=== PATIENT | female | born 1970 | race Caucasian/White ===

== ENCOUNTER 2016-05-30 23:47 | Emergency (ER) | payer OTHER ==
[2016-05-31 00:37] VITALS: BP 132/74; PULSE 78; RESP 20; TEMP 98.7
[2016-05-31] MEDS ORDERED: TOPICAL SKIN ADHESIVE 1 EACH AMP TOPICAL ONE (02:54)
[2016-05-31] MEDS ORDERED: DIPH,PERTUS(ACELL)TETVAC-LF 0.5 ML VIAL IM ONE (03:19)
--- NOTE | 2016-05-31 03:21 | ED ---
Wound/Laceration HPI - General Chief Complaint: Wound/Laceration Stated Complaint: finger lac Time Seen by Provider: 05/31/16 02:53 Source: patient, RN notes reviewed, old records reviewed Mode of arrival: ambulatory Limitations: no limitations - History of Present Illness Initial Comments: Patient is a 45 year old female with chief complaint of left 2nd digit laceration after pushing down the trash and hand was cut on a tin can edge. Patient does not know status of tetanus vacination. She request stiches and not dermabond. She reports she has full range of motion of her finger, and denies numbness or tingling in her finger. - Related Data Home Medications Medication Instructions Recorded Confirmed Amitriptyline HCl [Elavil] 30 mg PO HS 08/15/14 05/31/16 Atorvastatin [Lipitor] 20 mg PO DAILY 08/15/14 05/31/16 Losartan/Hydrochlorothiazide 1 each PO QAM 08/15/14 05/31/16 [Losartan-Hctz 100-25 mg Tab] Rizatriptan Benzoate [Maxalt] 10 mg PO DIRECTED PRN 08/15/14 05/31/16 clonazePAM [KlonoPIN] 0.25 mg PO BID PRN 08/15/14 05/31/16 L.acidoph,Paracasei, B.lactis 1 each PO DAILY 01/08/15 05/31/16 [Probiotic] Melatonin 10 mg PO HS 01/08/15 05/31/16 Naproxen Sodium [Aleve] 220 mg PO Q12HR PRN 01/08/15 05/31/16 Sertraline [Zoloft] 50 mg PO QAM 01/08/15 05/31/16 Allergies Allergy/AdvReac Type Severity Reaction Status Date / Time No Known Allergies Allergy Verified 05/31/16 00:38 Review of Systems ROS Statement: Those systems with pertinent positive or pertinent negative responses have been documented in the HPI. ROS Other: All systems not noted in ROS Statement are negative. Past Medical History Past Medical History: Hyperlipidemia, Hypertension, Osteoarthritis (OA) Additional Past Medical History / Comment(s): CURRENTLY HAVING PAIN RT FOREARM, MIGRAINES,CONSTIPATION,CHRONIC BACK PAIN,LT HEEL PUMP BUMP History of Any Multi-Drug Resistant Organisms: None Reported Past Surgical History: Section, Cholecystectomy, Hysterectomy, Orthopedic Surgery, Tubal Ligation Additional Past Surgical History / Comment(s): carpaltunnel R wrist,ORIF RT FOREARM,JENARO ACL REPAIR Past Anesthesia/Blood Transfusion Reactions: No Reported Reaction Past Psychological History: Anxiety, Depression, Panic Disorder Smoking Status: Current every day smoker Past Alcohol Use History: None Reported Additional Past Alcohol Use History / Comment(s): STARTED SMOKING 1990 ON AND OFF Past Drug Use History: None Reported - Past Family History Mother History Unknown: Yes Family Medical History: No Reported History Father Family Medical History: Cancer Additional Family Medical History / Comment(s): SKIN General Exam - General Exam Comments Initial Comments: Well appearing 45 year old female, no distress. Limitations: no limitations General appearance: alert, in no apparent distress Head exam: Present: atraumatic, normocephalic, normal inspection Eye exam: Present: normal appearance, PERRL, EOMI. Absent: scleral icterus, conjunctival injection, periorbital swelling ENT exam: Present: normal exam, mucous membranes moist Neck exam: Present: normal inspection. Absent: tenderness, meningismus, lymphadenopathy Cardiovascular Exam: Present: regular rate, normal rhythm, normal heart sounds. Absent: systolic murmur, diastolic murmur, rubs, gallop, clicks GI/Abdominal exam: Present: soft, normal bowel sounds. Absent: distended, tenderness, guarding, rebound, rigid Extremities exam: Present: normal inspection, full ROM, normal capillary refill. Absent: tenderness, pedal edema, joint swelling, calf tenderness Left Hand Wrist exam: Present: normal inspection, full ROM Hand L/R Back: 1 - .5 cm laceration. Neuro motor exam: Present: wrist extension intact, thumb opposition intact, thumb IP flexion intact, thumb adduction intact, fingers 2-5 abduction intact Neurosensory exam: Present: 2-point discrimination, radial nerve intact, ulnar nerve intact, median nerve intact Back exam: Present: normal inspection Neurological exam: Present: alert, oriented X3, CN II-XII intact Psychiatric exam: Present: normal affect, normal mood Skin exam: Present: warm, dry, intact, normal color. Absent: rash Course Vital Signs 05/31/16 00:36 Temperature 98.7 F Pulse Rate 78 Respiratory 20 Rate Blood Pressure 132/74 O2 Sat by Pulse 97 Oximetry Procedures - Laceration Laceration #1 Site: hand (proximal 2nd digit laceration ) Size (cm): 1 Description: linear Depth: simple, single layer Sedation/Analgesia: none Pre-repair: wound explored Type of Sutures: nylon Size of Sutures: 6-0 Number of Sutures: 1 Technique: simple, interrupted Patient Tolerated Procedure: well, no complications Medical Decision Making - Medical Decision Making Patient is a 45 year old female with .5 cm laceration to left proximal digit. Patient given one suture and wound was cleaned. She has full range of motion. Patient advised to monitor for signs of infection. Return parameters discussed. Disposition Clinical Impression: Finger laceration Disposition: HOME SELF-CARE Condition: Good Instructions: Care For Your Stitches (ED) Additional Instructions: Please return to the emergency room in 5 days to have sutures removed. Please leave wound covered for the first 24-48 hours and then leave open to air after that time. Please use clean soap and water to clean the suture area to prevent scabbing over the top of your sutures. Please watch for any signs of infection which may include but not limited to increased pain, swelling, redness, fever or chills. Please return to the emergency room if any signs of infection do occur. Please return to the emergency room for any other concerns or complications. Referrals: Tim Galloway DO [Primary Care Provider] - 1-2 days Time of Disposition: 03:21
== END 2016-05-31 04:01 | disposition home or self-care (01) ==
LOC: EC 23:47
DX: S61.211A Laceration without foreign body of left index finger without damage to nail, initial encounter (principal); E78.5 Hyperlipidemia, unspecified; I10 Essential (primary) hypertension; F32.9 Major depressive disorder, single episode, unspecified; F41.0 Panic disorder [episodic paroxysmal anxiety]; F41.9 Anxiety disorder, unspecified; F17.200 Nicotine dependence, unspecified, uncomplicated; Z79.899 Other long term (current) drug therapy; W26.8XXA Contact with other sharp object(s), not elsewhere classified, initial encounter; Z23 Encounter for immunization
CPT/HCPCS: 12001; 90471; 90715; 99282

== ENCOUNTER → 2017-08-12 | Outpatient (CLI) | payer BC ==
--- NOTE | 2017-08-16 10:29 | MM ---
Reason for exam: clinical finding. History: Took hormonal contraceptives beginning at age 16. Physical Findings: Nurse did not find any significant physical abnormalities on exam. MG 3D Diag Mammo W/Cad JENARO Bilateral CC and MLO view(s) were taken. There are scattered fibroglandular densities. No suspicious abnormality. These results were verbally communicated with the patient and result sheet given to the patient on 08/12/17. ASSESSMENT: Negative, BI-RAD 1 RECOMMENDATION: Routine screening mammogram of both breasts in 1 year. Manage on a clinical basis with regard to nonfocal left breast pain radiating to the patient's back.
== END | disposition home or self-care (01) ==
LOC: RADMAMWWP 15:36
PROVIDERS: ATTEND Family Medicine
DX: N64.4 Mastodynia (principal)
CPT/HCPCS: 77062; 77066

== ENCOUNTER → 2018-07-12 | Outpatient (CLI) | payer BC ==
--- NOTE | 2018-07-12 17:27 | NM ---
EXAMINATION TYPE: NM bone/joint limited DATE OF EXAM: 07/12/2018 COMPARISON: NONE HISTORY: Pain in thoracic spine TECHNIQUE: After the intravenous administration of 25.9 mCi Tc 99m MDP. Images acquired 3 hours pos t injection. Multiple views of the thoracic region are submitted. FINDINGS: There is no abnormal uptake within the visualized osseous structures to suggest acute process. No hima topenic defects are evident. Mild degenerative change at the costovertebral regions is not excluded. IMPRESSION: 1. No suspicious acute changes. 2. Mild costovertebral degenerative changes may be present.
== END | disposition home or self-care (01) ==
LOC: RADNMMAIN 09:51
PROVIDERS: ATTEND Physical Medicine & Rehabilitation
DX: M54.6 Pain in thoracic spine (principal)
CPT/HCPCS: 78300; A9503

== ENCOUNTER 2019-05-31 07:28 | Day surgery (SDC) | payer BC ==
[2019-05-29 14:29] VITALS: BMI 44.7
[~2019-05-31 07:28] MED LIST: DEXAMETHASONE SOD PHOSPHATE 10 MG/ML 1 ML VIAL IV ONE; HEPARIN SODIUM,PORCINE 5,000 UNIT/ML 1 ML VIAL SQ ONE; HYDROmorphone 0.5 MG/0.5 ML SYRINGE IVP PRN; LACTATED RINGERS 1,000 ML IV SCH; LIDOCAINE 1% (10MG/ML) FOR IV START INTRADERMA PRN; ONDANSETRON 4 MG/2 ML VIAL IVP ONE; Pre Op ABX Message 1 EACH MISC MISCELLANE ONE
[2019-05-31 08:00] VITALS: RESP 16
[2019-05-31] MEDS ORDERED: MIDAZOLAM 2 MG/2 ML VIAL IV ONE (08:23)
--- NOTE | 2019-05-31 09:02 | P.GSHP ---
History of Present Illness H&P Date: 05/31/19 Chief Complaint: Internal next of hemorrhoids This a 48-year-old female who presents today for hemorrhoidectomy. Patient's had trouble with chronic constipation. She developed severe internal hemorrhoids. She does today for hemorrhoidectomy. Patient points of rectal bleeding pain and itching. Past Medical History Past Medical History: Hyperlipidemia, Hypertension, Osteoarthritis (OA) Additional Past Medical History / Comment(s): Hx. of MIGRAINES,CONSTIPATION,CHRONIC BACK PAIN. Currently having rectal swelling. History of Any Multi-Drug Resistant Organisms: None Reported Past Surgical History: Section, Cholecystectomy, Hysterectomy, Orthopedic Surgery, Tubal Ligation Additional Past Surgical History / Comment(s): carpal tunnel Bilat, ORIF RT FOREARM,JENARO ACL REPAIR, Bilat heel surgery. Past Anesthesia/Blood Transfusion Reactions: No Reported Reaction Smoking Status: Former smoker - Past Family History Mother History Unknown: Yes Family Medical History: No Reported History Father Family Medical History: Cancer Additional Family Medical History / Comment(s): SKIN Medications and Allergies Home Medications Medication Instructions Recorded Confirmed Type Atorvastatin [Lipitor] 20 mg PO DAILY 08/15/14 05/29/19 History Losartan/Hydrochlorothiazide 1 each PO QAM 08/15/14 05/29/19 History [Losartan-Hctz 100-25 mg Tab] Naproxen Sodium [Aleve] 220 mg PO Q12HR PRN 01/08/15 05/29/19 History Ascorbic Acid [Vitamin C] 500 mg PO DAILY 05/29/19 05/29/19 History FLUoxetine HCL [PROzac] 10 mg PO DAILY 05/29/19 05/29/19 History Psyllium Husk 100% [Metamucil 6 gm PO DAILY 05/29/19 05/29/19 History Packet] Allergies Allergy/AdvReac Type Severity Reaction Status Date / Time No Known Allergies Allergy Verified 05/31/19 08:00 Surgical - Exam Vital Signs Temp Pulse Resp BP Pulse Ox 97.8 F 104 H 16 123/80 97 05/31/19 07:58 05/31/19 07:58 05/31/19 07:58 05/31/19 07:58 05/31/19 07:58 - General well developed, well nourished, no distress - Eyes PERRL - ENT normal pinna - Neck no masses - Respiratory normal expansion - Cardiovascular Rhythm: regular - Abdomen Abdomen: soft, non tender - Rectum Hemorrhoids: moderate, large Assessment and Plan Assessment: Internal and external hemorrhoids. We'll perform hemorrhoidectomy.
[2019-05-31] MEDS ORDERED: LIDOCAINE 1% INJ 10MG/ML (20 ML MDV) ONE (09:18)
[2019-05-31] MEDS ORDERED: KETAMINE 10 MG/ML 20 ML VIAL ONE (09:18)
[2019-05-31] MEDS ORDERED: ceFAZolin 1,000 MG VIAL ONE (09:18)
[2019-05-31] MEDS ORDERED: MIDAZOLAM 2 MG/2 ML VIAL ONE (09:18)
[2019-05-31] MEDS ORDERED: PROPOFOL 10 MG/ML 20 ML VIAL IV ONE (09:18)
[2019-05-31] MEDS ORDERED: fentaNYL (PF) 50 MCG/ML 2 ML AMP ONE (09:18)
[2019-05-31] MEDS ORDERED: BUPIVACAINE (PF) 0.25% 30 ML VIAL SQ ONE ×2 (09:53→09:56)
[2019-05-31] MEDS ORDERED: SODIUM CHLORIDE 0.9% 50 ML with ceFAZolin 2,000 MG IV ONE ×2 (09:54)
[2019-05-31] MEDS ORDERED: LIDOCAINE 1%-EPI 1:100,000 20 ML VIAL SQ ONE (09:56)
[2019-05-31] MEDS ORDERED: GELATIN SPONGE,ABSORB (LARGE) 1 EACH SPONGE TOPICAL ONE (10:06)
[2019-05-31 10:22] VITALS: TEMP 98.6
--- NOTE | 2019-05-31 10:38 | P.OP ---
Date of Procedure: 05/31/19 Preoperative Diagnosis: Internal and external hemorrhoids Postoperative Diagnosis: Internal and external hemorrhoids Procedure(s) Performed: Internal and external hemorrhoidectomy Anesthesia: CHICO Surgeon: Bear Tellez Pathology: none sent Condition: stable Disposition: PACU Description of Procedure: The patient's placed on the operative table in the prone position he should she received IV sedation. Her anus was prepped and sterile fashion. The anus was blocked with local lidocaine 1%. The patient had a large hemorrhoidal columns. The left lateral and right anterior and right posterior columns were enlarged. Using a anal retractor the left lateral hemorrhoidal column was exposed and then this was grasped with a Allis clamp. Using Harmonic scissors the hemorrhoidectomy was performed. Next the right anterior and right posterior hemorrhoidal column were excised in identical fashion. The anus and that her bleeding. There is no bleeding seen. The anus was then packed with Gelfoam. Patient top she will was sent to recovery room in stable condition.
[2019-05-31 11:28] VITALS: BP 124/75; PULSE 82
== END 2019-05-31 11:47 | disposition home or self-care (01) ==
LOC: OR 07:28
PROVIDERS: ATTEND Surgery
DX: K64.4 Residual hemorrhoidal skin tags (principal); K64.8 Other hemorrhoids; K59.09 Other constipation; E78.5 Hyperlipidemia, unspecified; I10 Essential (primary) hypertension; M19.90 Unspecified osteoarthritis, unspecified site; G43.909 Migraine, unspecified, not intractable, without status migrainosus; F41.9 Anxiety disorder, unspecified; F32.9 Major depressive disorder, single episode, unspecified; R52 Pain, unspecified; E66.01 Morbid (severe) obesity due to excess calories; Z68.45 Body mass index [BMI] 70 or greater, adult; Z98.890 Other specified postprocedural states; Z90.49 Acquired absence of other specified parts of digestive tract; Z90.710 Acquired absence of both cervix and uterus; Z98.51 Tubal ligation status; Z86.69 Personal history of other diseases of the nervous system and sense organs; Z87.81 Personal history of (healed) traumatic fracture; Z87.891 Personal history of nicotine dependence; Z85.828 Personal history of other malignant neoplasm of skin; Z79.899 Other long term (current) drug therapy; Z79.1 Long term (current) use of non-steroidal anti-inflammatories (NSAID)
CPT/HCPCS: 88304; 46260; J2250; J1644; J1100; J2405; J0690; J2001; J3010; J2704

== ENCOUNTER 2021-05-02 12:53 | Emergency (ER) | payer BC, OTHER ==
[2021-05-02 13:03] VITALS: TEMP 98.2
[2021-05-02] MEDS ORDERED: SODIUM CHLORIDE 0.9% 500 ML 500 ML IV STA (13:24)
--- NOTE | 2021-05-02 13:27 | ED ---
General Adult HPI - General Source: patient, family, RN notes reviewed, old records reviewed Mode of arrival: wheelchair Limitations: no limitations <Tim Byrd - Last Filed: 05/02/21 14:50> <Pricilla Vance - Last Filed: 05/02/21 22:48> - General Chief complaint: Shortness of Breath Stated complaint: SOB, +Bilat PEs Time Seen by Provider: 05/02/21 13:00 - History of Present Illness Initial comments: This is a 50-year-old female with past medical history significant for high blood pressure. Patient states she had COVID one month ago. Patient states over the last 2 weeks she's had shortness of breath and coughing. Patient states she's been seen by her family doctor and they have given her 2 different antibiotics and multiple doses of steroids and she continues to get worse. Patient states she saw her physician today and the physician told her that she probably has pneumonia and go to the hospital to get further evaluated. Patient denies any fever today but she has the chills. Patient states she has occasional chest pain in the front. Patient states she also is sore from coughing so much. Patient denies any nausea vomiting or diarrhea. Patient denies any swollen to the legs or calf tenderness (Tim Byrd) - Related Data Home Medications Medication Instructions Recorded Confirmed Atorvastatin [Lipitor] 20 mg PO DAILY 08/15/14 05/02/21 Losartan/Hydrochlorothiazide 1 tab PO DAILY 08/15/14 05/02/21 [Losartan-Hctz 100-25 mg Tab] Albuterol Sulfate [Ventolin HFA] 1 - 2 puff INHALATION RT-Q6H PRN 05/02/21 05/02/21 FLUoxetine HCL 40 mg PO DAILY 05/02/21 05/02/21 FLUoxetine HCL [PROzac] 20 mg PO DAILY 05/02/21 05/02/21 Ibuprofen [Motrin] 800 mg PO Q8H PRN 05/02/21 05/02/21 Previous Rx's Medication Instructions Recorded Ketorolac [Toradol] 10 mg PO Q6HR #20 tab 05/02/21 Allergies Allergy/AdvReac Type Severity Reaction Status Date / Time No Known Allergies Allergy Verified 05/02/21 15:54 Review of Systems ROS Other: All systems not noted in ROS Statement are negative. <Tim Byrd - Last Filed: 05/02/21 14:50> ROS Other: All systems not noted in ROS Statement are negative. <Pricilla Vance - Last Filed: 05/02/21 22:48> ROS Statement: Those systems with pertinent positive or pertinent negative responses have been documented in the HPI. Past Medical History Past Medical History: Hyperlipidemia, Hypertension, Osteoarthritis (OA) Additional Past Medical History / Comment(s): Hx. of MIGRAINES,CONSTIPATION,CHRONIC BACK PAIN. Currently having rectal swelling. History of Any Multi-Drug Resistant Organisms: None Reported Past Surgical History: Section, Cholecystectomy, Hysterectomy, Orthopedic Surgery, Tubal Ligation Additional Past Surgical History / Comment(s): carpal tunnel Bilat, ORIF RT FOREARM,JENARO ACL REPAIR, Bilat heel surgery. Past Anesthesia/Blood Transfusion Reactions: No Reported Reaction Past Psychological History: Anxiety, Depression, Panic Disorder Smoking Status: Never smoker Past Alcohol Use History: Occasional Past Drug Use History: None Reported - Past Family History Mother History Unknown: Yes Family Medical History: No Reported History Father Family Medical History: Cancer Additional Family Medical History / Comment(s): SKIN <Tim Byrd - Last Filed: 05/02/21 14:50> General Exam Limitations: no limitations <Tim Byrd - Last Filed: 05/02/21 14:50> - General Exam Comments Initial Comments: GENERAL: Patient is well-developed and well-nourished. Patient is nontoxic and well- hydrated and is in mild distress. ENT: Neck is soft and supple. No significant lymphadenopathy is noted. Oropharynx is clear. Moist mucous membranes. Neck has full range of motion without eliciting any pain. EYES: The sclera were anicteric and conjunctiva were pink and moist. Extraocular movements were intact and pupils were equal round and reactive to light. Eyelids were unremarkable. PULMONARY: Unlabored respirations. Good breath sounds bilaterally. No audible rales rhonchi or wheezing was noted. CARDIOVASCULAR: Patient is tachycardic at about 115 beats a minute ABDOMEN: Soft and nontender with normal bowel sounds. SKIN: Skin is clear with no lesions or rashes and otherwise unremarkable. NEUROLOGIC: Patient is alert and oriented x3. Cranial nerves II through XII are grossly intact. Motor and sensory are also intact. Normal speech, volume and content. Symmetrical smile. MUSCULOSKELETAL: Normal extremities with adequate strength and full range of motion. No lower extremity swelling or edema. No calf tenderness. LYMPHATICS: No significant lymphadenopathy is noted PSYCHIATRIC: Normal psychiatric evaluation. (Tim Byrd) Course Vital Signs 05/02/21 05/02/21 05/02/21 13:00 15:28 15:37 Temperature 98.2 F Pulse Rate 117 H 92 92 Respiratory 18 Rate Blood Pressure 120/58 O2 Sat by Pulse 96 Oximetry 05/02/21 16:03 Temperature Pulse Rate 87 Respiratory 16 Rate Blood Pressure 154/78 O2 Sat by Pulse 99 Oximetry Medical Decision Making - Lab Data Result diagrams: 05/02/21 13:34 05/02/21 13:34 <Tim Byrd - Last Filed: 05/02/21 14:50> - Lab Data Result diagrams: 05/02/21 13:34 05/02/21 13:34 <Pricilla Vance - Last Filed: 05/02/21 22:48> - Medical Decision Making EKG shows sinus tachycardia at 107 bpm VA interval is 160 QRS is 93 QT interval 345 QTC is 408. Patient's EKG shows no ST segment elevation or depression. Dr. Vance be taking over the care of this patient at 3 PM (Tim Byrd) I took over care of this patient at 3 PM. Patient was pending CT results. I reviewed the patient's laboratory studies. She was given 2 L of normal saline. CT was reviewed which answers no signs of PE. Mild interstitial infiltrate and subsegmental atelectasis. Possible pulmonary fibrosis. Results are discussed the patient. Patient will be discharged home. Recommended pulmonary function testing, pulmonary follow-up and echo. Patient given Toradol for pain control as she did have improvement in her symptoms when this was administered in the emergency department. Patient agreeable to this. Would return for any new or worsening symptoms. Patient discharged home ambulatory in stable condition (Pricilla Vance) - Lab Data Lab Results 05/02/21 05/02/21 05/02/21 Range/Units 13:34 13:34 13:34 WBC 10.4 (3.8-10.6) k/uL RBC 4.01 (3.80-5.40) m/uL Hgb 12.8 (11.4-16.0) gm/dL Hct 39.7 (34.0-46.0) % MCV 98.9 (80.0-100.0) fL MCH 31.9 (25.0-35.0) pg MCHC 32.3 (31.0-37.0) g/dL RDW 14.7 (11.5-15.5) % Plt Count 255 (150-450) k/uL MPV 7.8 Neutrophils % 78 % Lymphocytes % 15 % Monocytes % 4 % Eosinophils % 2 % Basophils % 1 % Neutrophils # 8.1 H (1.3-7.7) k/uL Lymphocytes # 1.5 (1.0-4.8) k/uL Monocytes # 0.4 (0-1.0) k/uL Eosinophils # 0.2 (0-0.7) k/uL Basophils # 0.1 (0-0.2) k/uL Macrocytosis Slight PT 10.0 (9.0-12.0) sec INR 0.9 (<1.2) APTT 22.5 (22.0-30.0) sec D-Dimer 0.68 H (<0.60) mg/L FEU Sodium 137 (137-145) mmol/L Potassium 3.6 (3.5-5.1) mmol/L Chloride 104 (98-107) mmol/L Carbon Dioxide 27 (22-30) mmol/L Anion Gap 6 mmol/L BUN 11 (7-17) mg/dL Creatinine 0.61 (0.52-1.04) mg/dL Est GFR (CKD-EPI)AfAm >90 (>60 ml/min/1.73 sqM) Est GFR (CKD-EPI)NonAf >90 (>60 ml/min/1.73 sqM) Glucose 149 H (74-99) mg/dL Lactic Ac Sepsis Rflx Plasma Lactic Acid Hunter (0.7-2.0) mmol/L Calcium 9.6 (8.4-10.2) mg/dL Magnesium 1.8 (1.6-2.3) mg/dL Total Bilirubin 1.2 (0.2-1.3) mg/dL AST 29 (14-36) U/L ALT 35 H (4-34) U/L Alkaline Phosphatase 155 H (38-126) U/L Troponin I (0.000-0.034) ng/mL NT-Pro-B Natriuret Pep pg/mL Total Protein 6.8 (6.3-8.2) g/dL Albumin 3.9 (3.5-5.0) g/dL 05/02/21 05/02/21 05/02/21 Range/Units 13:34 13:34 13:34 WBC (3.8-10.6) k/uL RBC (3.80-5.40) m/uL Hgb (11.4-16.0) gm/dL Hct (34.0-46.0) % MCV (80.0-100.0) fL MCH (25.0-35.0) pg MCHC (31.0-37.0) g/dL RDW (11.5-15.5) % Plt Count (150-450) k/uL MPV Neutrophils % % Lymphocytes % % Monocytes % % Eosinophils % % Basophils % % Neutrophils # (1.3-7.7) k/uL Lymphocytes # (1.0-4.8) k/uL Monocytes # (0-1.0) k/uL Eosinophils # (0-0.7) k/uL Basophils # (0-0.2) k/uL Macrocytosis PT (9.0-12.0) sec INR (<1.2) APTT (22.0-30.0) sec D-Dimer (<0.60) mg/L FEU Sodium (137-145) mmol/L Potassium (3.5-5.1) mmol/L Chloride (98-107) mmol/L Carbon Dioxide (22-30) mmol/L Anion Gap mmol/L BUN (7-17) mg/dL Creatinine (0.52-1.04) mg/dL Est GFR (CKD-EPI)AfAm (>60 ml/min/1.73 sqM) Est GFR (CKD-EPI)NonAf (>60 ml/min/1.73 sqM) Glucose (74-99) mg/dL Lactic Ac Sepsis Rflx Plasma Lactic Acid Hunter 2.9 H* (0.7-2.0) mmol/L Calcium (8.4-10.2) mg/dL Magnesium (1.6-2.3) mg/dL Total Bilirubin (0.2-1.3) mg/dL AST (14-36) U/L ALT (4-34) U/L Alkaline Phosphatase (38-126) U/L Troponin I <0.012 (0.000-0.034) ng/mL NT-Pro-B Natriuret Pep 38 pg/mL Total Protein (6.3-8.2) g/dL Albumin (3.5-5.0) g/dL 05/02/21 Range/Units 14:12 WBC (3.8-10.6) k/uL RBC (3.80-5.40) m/uL Hgb (11.4-16.0) gm/dL Hct (34.0-46.0) % MCV (80.0-100.0) fL MCH (25.0-35.0) pg MCHC (31.0-37.0) g/dL RDW (11.5-15.5) % Plt Count (150-450) k/uL MPV Neutrophils % % Lymphocytes % % Monocytes % % Eosinophils % % Basophils % % Neutrophils # (1.3-7.7) k/uL Lymphocytes # (1.0-4.8) k/uL Monocytes # (0-1.0) k/uL Eosinophils # (0-0.7) k/uL Basophils # (0-0.2) k/uL Macrocytosis PT (9.0-12.0) sec INR (<1.2) APTT (22.0-30.0) sec D-Dimer (<0.60) mg/L FEU Sodium (137-145) mmol/L Potassium (3.5-5.1) mmol/L Chloride (98-107) mmol/L Carbon Dioxide (22-30) mmol/L Anion Gap mmol/L BUN (7-17) mg/dL Creatinine (0.52-1.04) mg/dL Est GFR (CKD-EPI)AfAm (>60 ml/min/1.73 sqM) Est GFR (CKD-EPI)NonAf (>60 ml/min/1.73 sqM) Glucose (74-99) mg/dL Lactic Ac Sepsis Rflx Y Plasma Lactic Acid Hunter (0.7-2.0) mmol/L Calcium (8.4-10.2) mg/dL Magnesium (1.6-2.3) mg/dL Total Bilirubin (0.2-1.3) mg/dL AST (14-36) U/L ALT (4-34) U/L Alkaline Phosphatase (38-126) U/L Troponin I (0.000-0.034) ng/mL NT-Pro-B Natriuret Pep pg/mL Total Protein (6.3-8.2) g/dL Albumin (3.5-5.0) g/dL Disposition <Tim Byrd - Last Filed: 05/02/21 14:50> Is patient prescribed a controlled substance at d/c from ED?: No Time of Disposition: 15:55 <Pricilla Vance - Last Filed: 05/02/21 22:48> Clinical Impression: Shortness of breath, COVID-19, Chest pain Disposition: HOME SELF-CARE Condition: Stable Instructions (If sedation given, give patient instructions): Coronavirus Disease 2019 (COVID-19), Shortness of Breath (ED) Additional Instructions: Please follow up with your primary care doctor in 2-4 days. Return to emergency room for any new or worsening symptoms I recommend pulmonary function testing and an echo Prescriptions: Ketorolac [Toradol] 10 mg PO Q6HR #20 tab Referrals: Pricilla Suarez PAC [Primary Care Provider] - 1-2 days
[2021-05-02 13:49] LABS: Basophils # (A) 0.1 k/uL (0-0.2); Basophils % (A) 1 %; Eosinophils # (A) 0.2 k/uL (0-0.7); Eosinophils % (A) 2 %; HCT 39.7 % (34.0-46.0); HGB 12.8 gm/dL (11.4-16.0); Lymphocytes # (A) 1.5 k/uL (1.0-4.8); Lymphocytes % (A) 15 %; MCH 31.9 pg (25.0-35.0); MCHC 32.3 g/dL (31.0-37.0); MCV 98.9 fL (80.0-100.0); Macrocytosis Slight; Mean Platelet Volume 7.8; Monocytes # (A) 0.4 k/uL (0-1.0); Monocytes % (A) 4 %; Neutrophils # (A) 8.1 k/uL (1.3-7.7); Neutrophils % (A) 78 %; Platelet Count 255 k/uL (150-450); RBC 4.01 m/uL (3.80-5.40); RDW 14.7 % (11.5-15.5); WBC 10.4 k/uL (3.8-10.6)
[2021-05-02 14:00] LABS: ALT 35 U/L (4-34); AST 29 U/L (14-36); African American GFR (CKD) >90 (>60 ml/min/1.73 sqM); Albumin 3.9 g/dL (3.5-5.0); Alkaline Phosphatase 155 U/L (38-126); Anion Gap 6 mmol/L; Blood Urea Nitrogen 11 mg/dL (7-17); Calcium 9.6 mg/dL (8.4-10.2); Carbon Dioxide 27 mmol/L (22-30); Chloride 104 mmol/L (98-107); Glucose 149 mg/dL (74-99); Magnesium 1.8 mg/dL (1.6-2.3); Non-African American GFR(CKD) >90 (>60 ml/min/1.73 sqM); Potassium 3.6 mmol/L (3.5-5.1); Sodium 137 mmol/L (137-145); Total Bilirubin 1.2 mg/dL (0.2-1.3); Total Protein 6.8 g/dL (6.3-8.2)
--- NOTE | 2021-05-02 14:01 | XR ---
EXAMINATION TYPE: XR chest 2V DATE OF EXAM: 05/02/2021 1:48 PM COMPARISON:None TECHNIQUE: XR chest 2V Frontal and lateral views of the chest. CLINICAL INDICATION:Female, 50 years old with history of Difficulty breathing ; FINDINGS: Lungs/Pleura: Low lung volumes are present. There is no evidence of pleural effusion, focal consolida tion, or pneumothorax. Pulmonary vascularity: Unremarkable. Heart/mediastinum: Cardiomediastinal silhouette is unremarkable. Musculoskeletal: No acute osseous pathology. IMPRESSION: No acute cardiopulmonary disease/process.
[2021-05-02 14:16] LABS: INR 0.9 (<1.2); Partial Thromboplastin Time 22.5 sec (22.0-30.0)
[2021-05-02] MEDS ORDERED: SODIUM CHLORIDE 0.9% 500 ML 500 ML IV ONE (14:51)
[2021-05-02] MEDS ORDERED: HYDROmorphone 0.5 MG/0.5 ML SYRINGE IVP STA (14:56)
[2021-05-02] MEDS ORDERED: KETOROLAC 30 MG/ML 1 ML VIAL IVP STA (14:56)
[2021-05-02] MEDS ORDERED: IPRATROPIUM-ALBUTEROL 3 ML NEB INHALATION STA (14:59)
--- NOTE | 2021-05-02 15:24 | CT ---
EXAMINATION TYPE: CT chest angio for PE DATE OF EXAM: 05/02/2021 COMPARISON: None HISTORY: SOB, cough CT DLP: 818 mGycm Automated exposure control for dose reduction was used. CONTRAST: Performed with IV Contrast, patient injected with 100 mL of Isovue 370. There are Three-D postprocessed images. There is some mild reticular interstitial infiltrates in the periphery of both lungs. There is subseg mental atelectasis. There is no pleural effusion. Heart size is fairly normal. There is no pericardia l effusion. There is no mediastinal adenopathy. Thoracic aorta is intact. There is no aneurysm or dis section. There is normal contrast opacification of the pulmonary arteries. There are no filling defects. Upper abdominal soft tissues are intact. There is degenerative spurring in the thoracic spine. No significant compression deformity. The dale um is intact. IMPRESSION: No evidence of pulmonary embolism. Mild interstitial infiltrates and subsegmental atelectasis. There is probably some pulmonary fibrosis .
[2021-05-02] MEDS ORDERED: SODIUM CHLORIDE 0.9% 1,000 ML IV ONE (15:51)
[2021-05-02 16:27] VITALS: BP 154/78; PULSE 87; RESP 16
== END 2021-05-02 16:30 | disposition home or self-care (01) ==
LOC: EC 12:53
DX: U07.1 COVID-19 (principal); I10 Essential (primary) hypertension
CPT/HCPCS: 36415; 94640; 93005; 85379; 83880; 80053; 83605; 83735; 84484; 85025; 85610; 85730; 87040; 71046; 71275; 99285; 96374; 96375; 96361; J1885; J1170; Q9967

== ENCOUNTER 2022-10-08 19:11 | Emergency (ER) | payer MEDICARE, OTHER ==
[2022-10-08 19:26] VITALS: RESP 18; TEMP 98
[2022-10-08] MEDS ORDERED: SODIUM CHLORIDE 0.9% 1,000 ML IV STA (19:35)
[2022-10-08 20:01] LABS: ALT 37 U/L (4-34); AST 26 U/L (14-36); African American GFR (CKD) >90 (>60 ml/min/1.73 sqM); Alkaline Phosphatase 130 U/L (38-126); Anion Gap 8 mmol/L; Blood Urea Nitrogen 14 mg/dL (7-17); Calcium 9.2 mg/dL (8.4-10.2); Carbon Dioxide 27 mmol/L (22-30); Chloride 108 mmol/L (98-107); Glucose 134 mg/dL (74-99); Lipase 111 U/L (23-300); Non-African American GFR(CKD) >90 (>60 ml/min/1.73 sqM); Potassium 4.2 mmol/L (3.5-5.1); Sodium 143 mmol/L (137-145); Total Bilirubin 0.6 mg/dL (0.2-1.3)
[2022-10-08 20:04] LABS: HCT 41.7 % (34.0-46.0); HGB 12.2 gm/dL (11.4-16.0); MCH 27.7 pg (25.0-35.0); MCHC 29.3 g/dL (31.0-37.0); MCV 94.5 fL (80.0-100.0); Mean Platelet Volume 8.3; Platelet Count 245 k/uL (150-450); RBC 4.42 m/uL (3.80-5.40); RDW 14.1 % (11.5-15.5); WBC 7.2 k/uL (3.8-10.6)
[2022-10-08] MEDS ORDERED: ONDANSETRON 4 MG/2 ML VIAL IVP STA (20:17)
[2022-10-08] MEDS ORDERED: HYDROmorphone 0.5 MG/0.5 ML SYRINGE IVP STA (20:17)
[2022-10-08 20:49] LABS: Appearance,Urine Turbid (Clear); Bilirubin,Urine Negative (Negative); Blood,Urine Negative (Negative); Color,Urine Yellow; Glucose,Urine (UA) Negative (Negative); Ketones,Urine Negative (Negative); Leukocyte Esterase,Urine Trace (Negative); Mucus,Urine Occasional /hpf; Nitrite,Urine Negative (Negative); PH, Urine 7.5 (5.0-8.0); Protein,Urine 1+ (Negative); Specific Gravity,Urine 1.021 (1.001-1.035); Squamous Epithelial Cell,Urine 13 /hpf (0-4); WBC,Urine 7 /hpf (0-5)
[2022-10-08 20:53] LABS: Band Neutrophils % 1 %; Lymphocytes # (M) 2.45 k/uL (1.0-4.8); Monocytes # (M) 0.22 k/uL (0-1.0); Neutrophils % (M) 62 %; Nucleated Red Blood Cells 0 /100 WBC (0-0); Total Cells Counted 100
--- NOTE | 2022-10-08 21:05 | CT ---
EXAMINATION TYPE: CT abdomen pelvis w con CT DLP: 2250.8 mGycm, Automated exposure control for dose reduction was used. DATE OF EXAM: 10/08/2022 8:45 PM COMPARISON: None CLINICAL INDICATION:Female, 52 years old with history of pain; Abdominal pain and distension. TECHNIQUE: Axial CT of the abdomen and pelvis. Sagittal and coronal reformats were created on a [employer] workstation. Contrast used:100 ml mL of Isovue 300 with IV Contrast, (none if empty) Oral contrast used: without Oral Contrast (none if empty) FINDINGS: LOWER CHEST: Atherosclerosis of the coronary arteries. There is multiple right-sided subcutaneous to remote rib fractures. ABDOMEN LIVER: Unremarkable GALLBLADDER AND BILE DUCTS: The gallbladder surgically absent. PANCREAS: Unremarkable. SPLEEN: Unremarkable. ADRENAL GLANDS: Unremarkable. KIDNEYS AND URETERS: No evidence of hydronephrosis or renal calculus. The ureters are unremarkable. PELVIS BLADDER: Unremarkable REPRODUCTIVE: Unremarkable. ABDOMEN & PELVIS STOMACH AND BOWEL: No evidence of bowel obstruction. Scattered colonic diverticula. Findings as visualized and normal. PERITONEUM/RETROPERITONEUM: No evidence of pneumoperitoneum or free fluid. VASCULATURE: Mild atherosclerotic calcifications are present throughout the abdominal aorta and its b ranches. No evidence of aortic aneurysm. MUSCULOSKELETAL: No acute osseous abnormalities. Moderate disc degeneration changes are present throu ghout the thoracolumbar spine. Degeneration changes of the hips bilaterally with large osteophyte for mation and joint space narrowing. LYMPH NODES: No gross evidence for lymphadenopathy. SOFT TISSUE/ABDOMINAL WALL: Fat-containing umbilical hernia. IMPRESSION: 1. No definitive evidence for acute intra-abdominal process to explain the patient's pain 2. Scattered colonic diverticula.
[2022-10-08] MEDS ORDERED: NA PHOS,M-B/NA PHOS,DI-BA 133 ML ENEMA RECTAL STA (22:01)
[2022-10-08 22:51] VITALS: BP 100/62; PULSE 77
--- NOTE | 2022-10-08 22:52 | ED ---
Abdominal Pain HPI - General Chief Complaint: Abdominal Pain Stated Complaint: Chest Pain,Abd bloated Time Seen by Provider: 10/08/22 19:35 Source: patient Mode of arrival: ambulatory Limitations: no limitations - History of Present Illness Initial Comments: Patient is a 52-year-old female presents to emergency department for abdominal pain. She has intermittent generalized abdominal pain which radiates to her chest. No ripping or tearing nature. Patient is very bloated which she is most concerned with. She has not had a bowel movement in 5 days. States she is not passing gas. She denies history of bowel obstruction. She has history of zehra cystectomy, . Reports nausea no vomiting. No fever or chills. No blood in stool. No urinary symptoms. No shortness of breath. - Related Data Home Medications Medication Instructions Recorded Confirmed FLUoxetine HCL 40 mg PO DAILY 05/02/21 10/08/22 FLUoxetine HCL [PROzac] 20 mg PO DAILY 05/02/21 10/08/22 Aspirin EC [Ecotrin Low Dose] 81 mg PO DAILY 10/08/22 10/08/22 Atorvastatin [Lipitor] 40 mg PO DAILY 10/08/22 10/08/22 Ciprofloxacin HCl [Cipro] 500 mg PO BID 10/08/22 10/08/22 Cyanocobalamin (Vitamin B-12) 1,000 mcg PO DAILY 10/08/22 10/08/22 [Vitamin B-12] Dicyclomine [Bentyl] 20 mg PO DIRECTED 10/08/22 10/08/22 Furosemide [Lasix] 40 mg PO DAILY 10/08/22 10/08/22 Insulin Aspart [NovoLOG Flexpen] 10 units SQ AC-TID 10/08/22 10/08/22 Insulin Glargine,Hum.rec.anlog 24 units SQ HS 10/08/22 10/08/22 [Lantus Solostar Pen] Isosorbide Mononitrate ER [Imdur] 60 mg PO DAILY 10/08/22 10/08/22 Losartan [Cozaar] 25 mg PO DAILY 10/08/22 10/08/22 Magnesium Oxide [Magnesium] 500 mg PO DAILY 10/08/22 10/08/22 Metoprolol Succinate (ER) [Toprol 100 mg PO DAILY 10/08/22 10/08/22 Xl] Omeprazole 40 mg PO DAILY 10/08/22 10/08/22 Potassium Chloride ER [K-Dur 10] 10 meq PO DAILY 10/08/22 10/08/22 Prasugrel [Effient] 10 mg PO DAILY 10/08/22 10/08/22 Ranolazine [Ranexa] 500 mg PO BID 10/08/22 10/08/22 Semaglutide [Ozempic] 1 mg SQ SA 10/08/22 10/08/22 clonazePAM [KlonoPIN] 0.5 mg PO DAILY PRN 10/08/22 10/08/22 metFORMIN HCL ER [Glucophage XR] 1,000 mg PO BID 10/08/22 10/08/22 rOPINIRole HCL [rOPINIRole HCL ER 2 mg PO HS 10/08/22 10/08/22 (XL)] traZODone HCL [Desyrel] 75 mg PO HS 10/08/22 10/08/22 Previous Rx's Medication Instructions Recorded polyethylene glycoL 3350 [Miralax] 17 gm PO DAILY #3 packet 10/08/22 Allergies Allergy/AdvReac Type Severity Reaction Status Date / Time No Known Allergies Allergy Verified 10/08/22 21:02 Review of Systems ROS Statement: Those systems with pertinent positive or pertinent negative responses have been documented in the HPI. ROS Other: All systems not noted in ROS Statement are negative. Past Medical History Past Medical History: Fibromyalgia, Hyperlipidemia, Hypertension, Myocardial Infarction (DE), Osteoarthritis (OA) Additional Past Medical History / Comment(s): Hx. of MIGRAINES,CONSTIPATION,CHRONIC BACK PAIN. History of Any Multi-Drug Resistant Organisms: None Reported Past Surgical History: Section, Cholecystectomy, Heart Catheterization With Stent, Hysterectomy, Orthopedic Surgery, Tubal Ligation Additional Past Surgical History / Comment(s): carpal tunnel Bilat, ORIF RT FOREARM,JENARO ACL REPAIR, Bilat heel surgery. Past Anesthesia/Blood Transfusion Reactions: No Reported Reaction Past Psychological History: Anxiety, Depression, Panic Disorder Smoking Status: Never smoker Past Alcohol Use History: Occasional Past Drug Use History: None Reported - Past Family History Mother History Unknown: Yes Family Medical History: No Reported History Father Family Medical History: Cancer Additional Family Medical History / Comment(s): SKIN General Exam Limitations: no limitations General appearance: alert Eye exam: Present: normal appearance, PERRL, EOMI Respiratory exam: Present: normal lung sounds bilaterally. Absent: respiratory distress, wheezes, rales, rhonchi, stridor Cardiovascular Exam: Present: regular rate, normal rhythm, normal heart sounds. Absent: systolic murmur, diastolic murmur, rubs, gallop, clicks GI/Abdominal exam: Present: soft, tenderness (Generalized), normal bowel sounds. Absent: distended, guarding, rebound, rigid Extremities exam: Present: normal inspection, full ROM, normal capillary refill. Absent: pedal edema Neurological exam: Present: alert Psychiatric exam: Present: normal affect, normal mood Skin exam: Present: warm, dry, intact, normal color. Absent: rash Course Vital Signs 10/08/22 10/08/22 10/08/22 19:22 19:34 22:50 Temperature 98 F Pulse Rate 84 80 77 Respiratory 18 18 18 Rate Blood Pressure 118/78 138/65 100/62 O2 Sat by Pulse 98 97 96 Oximetry Medical Decision Making - Medical Decision Making EKG taken 19:36, interpreted by myself Sinus rhythm, no ST segment or T-wave abnormalities Ventricular rate 77, OR interval 177, QRS duration 90, QTc 420 Was pt. sent in by a medical professional or institution ([facility], MILLING MACHINIST, urgent care, hospital, or halfway...) When possible be specific @ -No Did you speak to anyone other than the patient for history (EMS, parent, family, police, friend...)? What history was obtained from this source @ -No Did you review nursing and triage notes (agree or disagree)? Why? @ -I reviewed and agree with nursing and triage notes Were old charts reviewed (outside hosp., previous admission, EMS record, old EKG, old radiological studies, urgent care reports/EKG's, halfway records)? Report findings @ -No old charts were reviewed Differential Diagnosis (chest pain, altered mental status, abdominal pain women, abdominal pain men, vaginal bleeding, weakness, fever, dyspnea, syncope, headache, dizziness, GI bleed, back pain, seizure, CVA, palpatations, mental health)? @ -Differential Abdominal Pain Women: Appendicitis, Cholecystitis, diverticulosis, ischemic bowel, pancreatitis, hepatitis, UTI, gastroenteritis, AAA, incarcerated hernia, bowel obstruction, constipation, inflammatory bowel, hepatitis, peptic ulcer disease, splenic infarction, perforated viscus, vulvitis, ovarian torsion, PID, kidney stone, placenta abruption, this is not meant to be an all-inclusive list EKG interpreted by me (3pts min.). @ -As above X-rays interpreted by me (1pt min.). @ -None done CT interpreted by me (1pt min.). @ -No acute intra-abdominal process U/S interpreted by me (1pt. min.). @ -None done What testing was considered but not performed or refused? (CT, X-rays, U/S, labs)? Why? @ -None What meds were considered but not given or refused? Why? @ -None Did you discuss the management of the patient with other professionals (professionals i.e. , PA, MILLING MACHINIST, lab, RT, psych nurse, social services assistant, plumbing installer, teacher, credit risk officer, trimming caser)? Give summary @ -No Was smoking cessation discussed for >3mins.? @ -No Was critical care preformed (if so, how long)? @ -No Were there social determinants of health that impacted care today? How? (Homelessness, low income, unemployed, alcoholism, drug addiction, transportation, low edu. Level, literacy, decrease access to med. care, skilled nursing, rehab)? @ -No Was there de-escalation of care discussed even if they declined (Discuss DNR or withdrawal of care, Hospice)? DNR status @ -No What co-morbidities impacted this encounter? (DM, HTN, Smoking, COPD, CAD, Cancer, CVA, ARF, Chemo, Hep., AIDS, mental health diagnosis, sleep apnea, morbid obesity)? @ -None Hospital course Patient presented with abdominal pain and bloating. She is nontoxic-appearing. The abdomen is soft and nondistended. There is generalized tenderness without guarding. Laboratory studies obtained. No leukocytosis. Alk phos is elevated at 130, similar to April 2021. ALT minimally elevated at 37, similar to April 2021. Other studies were relatively unremarkable. CT abdomen and pelvis interpreted by myself/radiology showing no acute process. Results discussed with patient. I do believe pain and bloating is related to constipation. We attempted an enema she had a large bowel movement with relief. Patient feels better requesting to go home. We discussed the importance of water and fiber intake in detail. Patient to follow up with primary care provider Undiagnosed new problem with uncertain prognosis? @ [N] Drug Therapy requiring intensive monitoring for toxicity (Heparin, Nitro, Insulin, Cardizem)? @ [N] Were any procedures done? @ [N] Diagnosis/symptom? @ -abdominal pain, constipation Acute, or Chronic, or Acute on Chronic? @ -acute Uncomplicated (without systemic symptoms) or Complicated (systemic symptoms)? @ -uncomplicated Side effects of treatment? @ -No Exacerbation, Progression, or Severe Exacerbation? @ -No] Poses a threat to life or bodily function? How? (Chest pain, USA, DE, pneumonia, PE, COPD, DKA, ARF, appy, cholecystitis, CVA, Diverticulitis, Homicidal, Suicidal, threat to staff... and all critical care pts) @ -[No] Dr. Mcintyre is my attending - Lab Data Result diagrams: 10/08/22 01:52 10/08/22 19:43 Lab Results 10/08/22 10/08/22 10/08/22 Range/Units 01:52 19:43 19:43 WBC 7.2 (3.8-10.6) k/uL RBC 4.42 (3.80-5.40) m/uL Hgb 12.2 (11.4-16.0) gm/dL Hct 41.7 (34.0-46.0) % MCV 94.5 (80.0-100.0) fL MCH 27.7 (25.0-35.0) pg MCHC 29.3 L (31.0-37.0) g/dL RDW 14.1 (11.5-15.5) % Plt Count 245 (150-450) k/uL MPV 8.3 Neutrophils % (Manual) 62 % Band Neuts % (Manual) 1 % Lymphocytes % (Manual) 34 % Monocytes % (Manual) 3 % Neutrophils # (Manual) 4.50 (1.3-7.7) k/uL Lymphocytes # (Manual) 2.45 (1.0-4.8) k/uL Monocytes # (Manual) 0.22 (0-1.0) k/uL Nucleated RBCs 0 (0-0) /100 WBC Manual Slide Review Performed Sodium 143 (137-145) mmol/L Potassium 4.2 (3.5-5.1) mmol/L Chloride 108 H (98-107) mmol/L Carbon Dioxide 27 (22-30) mmol/L Anion Gap 8 mmol/L BUN 14 (7-17) mg/dL Creatinine 0.62 (0.52-1.04) mg/dL Est GFR (CKD-EPI)AfAm >90 (>60 ml/min/1.73 sqM) Est GFR (CKD-EPI)NonAf >90 (>60 ml/min/1.73 sqM) Glucose 134 H (74-99) mg/dL Calcium 9.2 (8.4-10.2) mg/dL Total Bilirubin 0.6 (0.2-1.3) mg/dL AST 26 (14-36) U/L ALT 37 H (4-34) U/L Alkaline Phosphatase 130 H (38-126) U/L Total Protein 7.0 (6.3-8.2) g/dL Albumin 4.0 (3.5-5.0) g/dL Lipase 111 (23-300) U/L Urine Color Yellow Urine Appearance Turbid H (Clear) Urine pH 7.5 (5.0-8.0) Ur Specific [place] 1.021 (1.001-1.035) Urine Protein 1+ H (Negative) Urine Glucose (UA) Negative (Negative) Urine Ketones Negative (Negative) Urine Blood Negative (Negative) Urine Nitrite Negative (Negative) Urine Bilirubin Negative (Negative) Urine Urobilinogen 2.0 (<2.0) mg/dL Ur Leukocyte Esterase Trace H (Negative) Urine WBC 7 H (0-5) /hpf Ur Squamous Epith Cells 13 H (0-4) /hpf Urine Mucus Occasional H (None) /hpf Disposition Clinical Impression: Constipation, Abdominal pain Disposition: HOME SELF-CARE Condition: Good Instructions (If sedation given, give patient instructions): Constipation (ED), High Fiber Diet (ED) Additional Instructions: Increase water and fiber intake. Take MiraLAX as needed for constipation. Follow-up with primary care provider in one to 2 days. Return to the emergency department if you experience new, concerning, or worsening symptoms. Prescriptions: polyethylene glycoL 3350 [Miralax] 17 gm PO DAILY #3 packet Is patient prescribed a controlled substance at d/c from ED?: No Referrals: Pricilla Suarez PAC [Primary Care Provider] - 1-2 days
== END 2022-10-08 23:01 | disposition home or self-care (01) ==
LOC: EC 19:11
DX: K57.30 Diverticulosis of large intestine without perforation or abscess without bleeding (principal); K59.00 Constipation, unspecified; E78.5 Hyperlipidemia, unspecified; I10 Essential (primary) hypertension; I25.2 Old myocardial infarction; Z86.59 Personal history of other mental and behavioral disorders; Z79.899 Other long term (current) drug therapy; Z79.82 Long term (current) use of aspirin; Z79.02 Long term (current) use of antithrombotics/antiplatelets
CPT/HCPCS: 36415; 93005; 80053; 83690; 85025; 81001; 74177; 99284; 96374; 96375; 96361; J2405; J1170; Q9967

== ENCOUNTER → 2023-05-05 | Outpatient (CLI) | payer OTHER ==
[2023-05-05 11:33] LABS: African American GFR (CKD) >90 (>60 ml/min/1.73 sqM); Blood Urea Nitrogen 10 mg/dL (7-17); Non-African American GFR(CKD) >90 (>60 ml/min/1.73 sqM)
--- NOTE | 2023-05-05 13:48 | CT ---
EXAMINATION: CT ABDOMEN AND PELVIS WITH IV CONTRAST DATE OF EXAMINATION: 05/05/2023. COMPARISON: 10/08/2022. INDICATION: Right lower quadrant pain. PROCEDURE: Axial CT of the abdomen and pelvis was performed with contrast and sagittal and coronal reformatted images were performed. CT dose lowering techniques were used, to include: automated expos ure control, adjustment for patient size, and/or use of iterative reconstruction. 100 mL of Isovue-30 0 was given intravenously. FINDINGS: LOWER CHEST : The visualized lung bases are clear. There are no pleural or pericardial effusions. ABDOMEN: Liver and Biliary system: There is mild diffuse decreased attenuation of the liver which is compatib le fatty liver infiltration. The liver is enlarged measuring 18.9 cm in craniocaudal dimension. Adrenal glands: Normal. Kidneys and ureters: Normal. Spleen: Normal. Pancreas: Normal. Gallbladder: Surgically absent. Lymph nodes, Peritoneum and mesentery: There is no mesenteric or retroperitoneal lymphadenopathy. Gastrointestinal tract: There are no dilated loops of bowel or free intraperitoneal air. The appe ndix is normal. There is mild descending colonic and sigmoid colonic diverticulosis without evidence of diverticulitis. Aorta/IVC: There is mild vascular calcification throughout the abdominal aorta without evidence of aneurysmal dilation or dissection. IVC normal. Abdominal wall: Normal. PELVIS: Fluid: There is no free fluid in the pelvis. Lymph Nodes: There is no pelvic or inguinal lymphadenopathy.. Urinary bladder: Normal. BONES: Bilateral pars interarticularis defects at L4 with minimal anterolisthesis. Scattered degener ative facet changes are otherwise noted. ADDITIONAL SIGNIFICANT FINDINGS: None. IMPRESSION: 1. No acute process seen within the abdomen or pelvis. 2. Diverticulosis without evidence of diverticulitis.
== END | disposition home or self-care (01) ==
LOC: RADCTMAIN 10:13
PROVIDERS: ATTEND Family Medicine
DX: R10.84 Generalized abdominal pain (principal); R10.2 Pelvic and perineal pain; R10.31 Right lower quadrant pain
CPT/HCPCS: 82565; 84520; 74177; 36415; Q9967